=== PATIENT | female | born 1965 | race Caucasian/White ===

== ENCOUNTER → 2018-04-06 15:20 | Outpatient (CLI) | payer OTHER, SELFPAY ==
[2018-04-06 14:56] VITALS: BMI 33.4
--- NOTE | 2018-04-06 15:20 | FLU_PTH ---
PATIENT: MAREK KIDD LOC: JIN U#:[id number] AGE/SX: 59/F ROOM: RE04/06/[address]: Dr. Brian Robert MD : 1965 BED: DIS: SPEC #: [id number] RECD: 04/07/18 07:26 STATUS: RANDELL REJusten #: [id number] SHELTON: 04/06/18 15:[address]: Brian Robert DEPT: CYTOLOGY RECD BY: Suresh Willett ENTERED: 04/07/18 11:35 SP TYPE: Fluid OTHR DR: Dr. Mikhail Elaine MD Tissues: A - Thyroid gland, NOS B - Thyroid gland, NOS C - Thyroid isthmus Procedures: Special Stain Group II Surgery Specimen Level IV Cytospin Fluid Cytology Other HEADER OPERATION: Fine needle aspiration of left thyroid and isthmus PRE-OP DIAGNOSIS: Thyroid nodules TISSUE SUBMITTED: A - Left thyroid fluid for cytology, B - Left thyroid slides x4, C - Isthmus slides x6 DIAGNOSIS CYTOLOGY A. Fine needle aspiration, left thyroid nodule (cytospin and cell block): Rare follicular cells, blood and colloid-like material. Negative for malignant cells. B. Fine needle aspiration, left thyroid nodule (smears): Atypical follicular cells with H?rthle cell features, of undetermined clinical significance. C. Fine needle aspiration, isthmus (smears): Adequate for evaluation. Polymorphous lymphocytes. Rare follicular cells present. See comment. AM:eli 04/08/18 COMMENT C. The specimen primarily consists of polymorphous lymphocytes with rare follicular cells with H?rthle cell features.. The nodule in the isthmus is consistent with chronic thyroiditis. Due to predominance of lymphocytes, a lymph node at this site cannot be entirely excluded. Clinical correlation is necessary. Case has been reviewed in consultation with Dr. Gan who concurs with the above diagnosis. IDC:SJ CYTOLOGY STUDY Slides are reviewed. CYTOLOGY GROSS A - Received is 3 ml of red cloudy fluid labeled with the patient's name and and designated per the requisition as left thyroid. Submitted for cytology preparation including cell block. B - Received are four smears labeled with the patient's name and designated per the requisition as left thyroid. Submitted for staining. C - Received are six smears labeled with the patient's name and designated per the requisition as isthmus. Submitted for staining. 04/07/18 TC:? CPT: 18936, 06505, 05506 x2
== END ==
PROVIDERS: Family Provider Family Medicine; PCP Family Medicine; Referring Provider Surgery; Visit Provider Surgery
DX: E04.1 Nontoxic single thyroid nodule (principal)
CPT/HCPCS: 88108; 88161; 88305; 88313

== ENCOUNTER → 2018-04-21 09:24 | Outpatient (CLI) | payer OTHER, SELFPAY ==
[2018-04-16 10:06] VITALS: BMI 33.4
--- NOTE | 2018-04-21 09:38 | US_ITS ---
STUDY: Neck ULTRASOUND REASON FOR EXAM: Female, 53 years old. Fullness in the neck TECHNIQUE: Ultrasound evaluation of the neck was performed with real-time and static weems-scale imaging. COMPARISON: None. FINDINGS: There are 3 enlarged left cervical nodes measuring 2 x 1 x 0.6 cm in the left submandibular space, 2.2 x 0.9 x 0.4 cm anterior lateral to the thyroid and 1 x 0.9 x 0.5 cm inferior and lateral to the thyroid US/Head/Neck Soft Tissue IMPRESSION: Mildly enlarged left cervical nodes of uncertain etiology or clinical significance. Sonographic guided biopsy or CT/PET scan would be helpful for further evaluation if indicated Electronically Signed: Yoandy Dixon MD at 19:37 EST , Service support ,
== END ==
LOC: US 09:25
PROVIDERS: Family Provider Family Medicine; PCP Family Medicine; Referring Provider Surgery; Visit Provider Surgery
DX: R22.1 Localized swelling, mass and lump, neck (principal)
CPT/HCPCS: 76536

== ENCOUNTER → 2018-04-29 07:56 | Outpatient (CLI) | payer OTHER, SELFPAY ==
--- NOTE | 2018-04-28 16:00 | ASPS_PTH ---
PATIENT: MAREK KIDD LOC: JIN U#:[id number] AGE/SX: 59/F ROOM: RE04/29/[address]: Dr. Brian Robert MD : 1965 BED: DIS: SPEC #: [id number] RECD: 04/29/18 07:53 STATUS: RANDELL COTEJusten #: [id number] SHEL[place]: 04/28/18 16:[address]: Brian Robert DEPT: CYTOLOGY RECD BY: Suresh Willett ENTERED: 04/29/18 11:03 SP TYPE: ASPIRATION OTHR DR: Dr. Mikhail Elaine MD Tissues: Neck, NOS Procedures: Special Stain Group II Cytology Other HEADER OPERATION: FNA left cervical lymph node PRE-OP DIAGNOSIS: Enlarged lymph node, neck TISSUE SUBMITTED: Left neck lymph node slides x8 DIAGNOSIS CYTOLOGY Left neck lymph node, FNA (smears): Negative for malignant cells. See cytology study and comment. SJ:eli 04/30/18 COMMENT Correlation with clinical, radiologic findings and appropriate follow up are necessary. If there is high suspicion of lymphoma, excision of the lymph node is suggested including flow cytometry studies, if clinically indicated. Please make reference to previous specimen ([id number]), A - Fine needle aspiration, left thyroid nodule (cytospin and cell block) with diagnosis of rare follicular cells, blood and colloid-like material, B - Fine needle aspiration, left thyroid nodule (smears) with diagnosis of atypical follicular cells with H?rthle cell feature of undetermined clinical significance, and C - Fine needle aspiration, isthmus (smears) with diagnosis of polymorphous lymphocytes and rare follicular cells present. CYTOLOGY STUDY Slides are reviewed. The specimen consists of polymorphous population of lymphocytes, predominantly small lymphocytes. CYTOLOGY GROSS Received are eight smears labeled with the patient's name and designated per the requisition as left neck lymph node. Submitted for staining. 04/29/18 TC:5 CPT: 47132
[2018-04-28 16:12] VITALS: BMI 33.4
== END ==
PROVIDERS: Family Provider Family Medicine; PCP Family Medicine; Referring Provider Surgery; Visit Provider Surgery
DX: R59.0 Localized enlarged lymph nodes (principal)
CPT/HCPCS: 88161; 88313

== ENCOUNTER 2018-05-04 09:38 | Observation (INO) | payer OTHER, SELFPAY ==
[2018-04-16 10:06] VITALS: BMI 33.4
[2018-04-28 16:12] VITALS: BMI 33.4
--- NOTE | 2018-04-28 17:07 | EKG12_ITS ---
Test Reason : PRE OP Blood Pressure : / mmHG Vent. Rate : 071 BPM Atrial Rate : 071 BPM P-R Int : 144 ms QRS Dur : 084 ms QT Int : 408 ms P-R-T Axes : 057 -11 -19 degrees QTc Int : 443 ms Sinus rhythm with occasional Premature ventricular complexes Possible Left atrial enlargement Nonspecific T wave abnormality Abnormal ECG Confirmed by CASANDRA WALLS, LACHELLE ([id number]), editorial director YONY ROSALES ([id number]) on 04/30/2018 8:50:58 AM Referred By: Brian Robert Confirmed By:LACHELLE GUAJARDO MD
[2018-04-28 17:37] LABS: Hematocrit 34.6 % (37-47); Hemoglobin 10.4 g/dl (12.0-15.0); Mean Corp Hgb Conc 30.1 g/gl (32-36); Mean Corpuscular Volume 76.4 fL (81-99); Mean Platelet Vol. 9.9 fl (6.2-12.0); Platelet Count 331 K/mm3 (150-450); RBC Distribution Width CV 14.8 % (11.6-14.6); RBC Distribution Width SD 41.5 fl (35.1-43.9); Red Blood Count 4.53 M/mm3 (4.2-5.4); Scan Indicated on CBC? Y/N NO; White Blood Count 8.5 K/mm3 (4.4-11.0)
[2018-04-28 18:33] LABS: Anion Gap 7 (5-15); BUN 19 mg/dL (7-18); Calcium,Total 8.2 mg/dL (8.5-10.1); Chloride 108 mmol/L (98-107); Creatinine, Serum 0.68 mg/dL (0.55-1.02); EST Glomerular Filtration Rate 97 mL/min (>60); Est Glom Filt Rate - Afr Amer 118 mL/min (>60); Glucose 97 mg/dL (74-106); Phosphorus 3.3 mg/dL (2.5-4.9); Potassium 3.9 mmol/L (3.5-5.1); Sodium Level 139 mmol/L (136-145)
[2018-05-04] VITALS (9 sets, daily range): BP systolic 88–146; BP diastolic 52–85; PULSE 59–84; RESP 16; TEMP 36.1–36.9; O2SAT 97–100; BMI 30.8; BMI 29.9
--- NOTE | 2018-05-04 | IMM_PTH ---
PATIENT: MAREK KIDD LOC: MS2 U#:[id number] AGE/SX: 53/F ROOM: [facility] RE05/04/[address]: Dr. Brian Robert MD : 1965 BED: 1 DIS: 05/04/2018 SPEC #: [id number] RECD: 05/06/18 12:19 STATUS: RANDELL REQ #: [id number] SHE[place]: 05/04/18 00:[address]: Brian Robert DEPT: IMMUNOHISTOCHEMISTRY RECD BY: Pari Vasquez ENTERED: 05/06/18 12:21 SP TYPE: IMMUNO OTHR DR: Dr. Mikhail Elaine MD Tissues: D - Thyroid gland, NOS Procedures: HBME (initial) CD56 (add) CK19 (add) GAL-3 (add) PHYSICIAN & INSTITUTION [place] [id number] SPECIMEN INFORMATION: Tissue Source: D - Thyroid Clinical Info: Multiple thyroid nodules Specimen Number: [id number] CPT code: 51507, 81080 x3 METHODOLOGY: Deparaffinized sections of prefer/formalin-fixed tissue or PAP/DQ stained slides are incubated with monoclonal/polyclonal antibodies/oligonucleotide probes. Localization is made via biotin free immunoperoxidase method. Appropriate controls are performed and reacted as expected. Results on target cell population are indicated in the following table: RESULTS: ANTIBODY / CLONE RESULT Block D4 HBME1 (HBME-1) positive CK19 (A53-B/A2.26) positive GAL3 (9C4) positive CD56 (123C3.D5) negative These tests were developed and their performance characteristics determined by [facility]. They may not have been cleared or approved by the U.S. Food and Drug Administration. The FDA has determined that such clearance or approval is not necessary. INTERPRETATION: Abisai Bush, total thyroidectomy: Papillary thyroid microcarcinoma. SJ:eli 05/07/18
--- NOTE | 2018-05-04 | PARA_PTH ---
PATIENT: MAREK KIDD LOC: MS2 U#:[id number] AGE/SX: 53/F [place] [facility] [place]: Dr. Brian Robert MD : 1965 BED: 1 DIS: 05/04/2018 SPEC #: [id number] RECD: 05/04/18 07:57 STATUS: RANDELL NYASIA #: [id number] SHE[place]: 05/04/18 00:[address]: Brian Robert DEPT: SURGICAL PATHOLOGY RECD BY: Pari Vasquez ENTERED: 05/04/18 09:45 SP TYPE: PARATHY OTHR DR: Dr. Mikhail Elaine MD Tissues: A - Parathyroid B - Parathyroid C - Parathyroid D - Thyroid gland, NOS E - Parathyroid Procedures: Frozen Section (charge) Surgery Specimen Level IV Surgery Specimen Level V HEADER OPERATION: Thyroidectomy PRE-OP DIAGNOSIS: Multiple thyroid nodules TISSUE SUBMITTED: A - Possible left inferior parathyroid sent to lab for frozen at 0752, B - Possible superior right parathyroid sent to lab for frozen at 0916, C - Remainder of left inferior parathyroid (specimen A), D - Thyroid, suture richard anterior/superior aspect of left lobe, E - Remainder of right superior parathyroid (specimen B) FROZEN SECTION DIAGNOSIS A. Possible left inferior parathyroid, biopsy: Thyroid tissue. SJ:eli 05/04/18 B. Perithyroidal tissue, biopsy: Lymphoid tissue. AM:eli 05/04/18 MICROSCOPIC DIAGNOSIS A. Possible left inferior parathyroid tissue: Thyroid tissue. B. Possible superior right parathyroid tissue: Consistent with chronic lymphocytic thyroiditis. See comment. C. Remainder of left inferior parathyroid: Thyroid tissue. D. 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 Multinodular goiter with adenomatoid nodules and cystic changes. Three out of three lymph nodes negative for metastatic carcinoma. See cancer summary below. E. Remainder of right superior parathyroid tissue: Consistent with chronic lymphocytic thyroiditis. See comment. :eli 05/06/18 COMMENT B. The specimen predominantly consists of lymphoid component. E. The specimen predominantly consists of lymphoid component. Please make reference to previous specimens ([id number]), fine needle aspiration, left thyroid nodule (cytospin and cell block) with diagnosis of rare follicular cells, blood and colloid-like material and fine needle aspiration, left thyroid nodule (smears)with diagnosis of atypical follicular cells with H?rthle cell feature of undetermined significance and fine needle aspiration, isthmus (smears) with diagnosis of polymorphous lymphocytes and rare follicular cells present and ([id number]) left neck lymph node, FNA with diagnosis of negative for malignant cells. THYROID CANCER SUMMARY: Procedure - total thyroidectomy Received - in formalin Specimen integrity - intact Specimen size - right lobe 3.5 x 2 x 1 cm, left lobe 4.5 x 3 x 2.5 cm, isthmus 2.3 x 1 x 1 cm Specimen weight - 19.3 gm Tumor focality - unifocal Tumor laterality - right lobe Tumor size - 0.4 x 0.4 cm (measured microscopically) Histologic type - papillary carcinoma, microcarcinoma Architecture - mixed, classical (papillary) and follicular Cytomorphology - classical Margins - margins are uninvolved by invasive carcinoma. The tumor is 0.2 cm away from the closest posterior margin. Tumor capsule - none Tumor capsular invasion - not applicable Lymph-Vascular invasion - not applicable Perineural invasion - not identified Extrathyroidal extension - not identified Lymph nodes: Number of lymph nodes examined - 3 Number of lymph nodes involved - 0 Distant metastasis - not applicable Additional pathologic findings - chronic lymphocytic thyroiditis (Yessica's thyroiditis). - Multinodular goiter with adenomatoid nodule and cystic changes. Ancillary studies - Immunohistochemistry ([id number]) supports the diagnosis of papillary thyroid microcarcinoma. PATHOLOGIC STAGE: pT1a pN0 Mx The above summary is in compliance with [employer] [place] [employer] (CAP) Cancer Protocols Checklist and [place] [employer] Committee on Cancer (AJCC), Staging Manual, 8th Ed. Case has been reviewed in consultation with Dr. Bolanos who concurs with the above diagnosis. IDC:AM MICROSCOPIC DESCRIPTION Slides are reviewed. GROSS DESCRIPTION A - Received fresh for frozen section diagnosis labeled with the patient's name is a specimen designated possible left inferior parathyroid. The specimen consists of a piece of hu soft tissue measuring 0.3 x 0.2 x 0.1 cm. The entire specimen is submitted for frozen section diagnosis in one cassette. / SJ: 05/04/18 B - Received fresh for frozen section diagnosis labeled with the patient's name is a specimen designated possible superior right parathyroid. The specimen consists of a piece of hu soft tissue measuring 0.3 x 0.2 x 0.1 cm. The entire specimen is submitted for frozen section diagnosis in one cassette. / AM: 05/04/18 C - Received in fixative is one container labeled with the patient's name and designated remainder of left inferior parathyroid. The specimen consists of an irregular fragment of light hu soft tissue measuring 0.3 x 0.2 x 0.1 cm. The specimen is totally submitted in one cassette. / AM: 05/05/18 D - Received in fixative is one container labeled with the patient's name and designated thyroid. The specimen consists of a total thyroidectomy measuring 6.6 x 4.2 x 2.5 cm and weighing 19.3 gm. The right lobe measures 3.5 x 2 x 1 cm. The isthmus measures 2.3 x 1 x 1 cm. The left lobe measures 4.5 x 3 x 2.5 cm. The specimen is differentially inked as follows: right lobe anterior - blue, left lobe anterior - green, isthmus anterior - red. The entire posterior portion of the gland is inked in black ink. Serial sections of the isthmus reveal a firm, hu-white lesion measuring 1.5 x 1 x 0.8 cm. This nodule extends into the lower portion of the right lobe. A similar mass measuring 1.2 cm is noted in the superior portion of the right lobe. The left lobe is replaced by a cystic lesion that measures 3.2 cm in greatest dimension and in its most inferior portion appear to have calcific change. The specimen is totally submitted in 13 cassettes as follows: 1 - isthmus, 2 & 3 - right lobe inferior portion with lesion, 4 & 5 - right lobe superior half, 6-13 - entire left lobe with #13 submitted after decalcification. / AM:eli 05/05/18 E - Received in fixative is one container labeled with the patient's name and designated remainder of right superior parathyroid. The specimen consists of an irregular fragment of light hu soft tissue measuring 0.5 x 0.2 x 0.1 cm. The specimen is totally submitted in one cassette. / AM:eli 05/05/18 TC:0 CPT: 00312, 24695 x4, 73203 x2
--- NOTE | 2018-05-04 07:12 | PCM.DC.GS ---
Discharge Diet: Light diet - advance as tolerated - if you have questions about your diet instructions, please talk to you doctor. Discharge Activity: May Not Drive - for 3-5days or while taking narcotic pain medicine. May shower in (days): 1 Lifting Restrictions: 10 pounds Call your doctor if your incision/area has: Continuous Slow Oozing, Sudden Increased Bleeding, Increased Pain/ Swelling, Increased Redness, Foul Smelling Discharge Call your doctor if you observe: Fever of 101 or Higher Suture Line Care: Avoid Pulling/Pushing, Avoid Pinching/Bending Additional Dressing/Incision Instructions:: You may leave the incision open or you may cover it with a small Band-Aid or gauze dressing to protect it from clothing Allergies/Adverse Reactions: Allergies No Known Allergies Allergy (Verified 04/28/18 15:53) Medications to take at Discharge magnesium 250 mg tablet 250 mg PO DAILY 04/06/18 Orders to be completed after discharge: 12 Lead EKG [CVS] Time Frame: 04/28/18, Facility: [facility], Location: Cardiovascular Services Basic Metabolic Profile (BMP) Time Frame: 04/28/18, Location: Laboratory CBC-Complete Blood Cnt No Diff Time Frame: 04/28/18, Location: Laboratory Phosphorus Time Frame: 04/28/18, Location: Laboratory Primary Care Physician: Mikhail Elaine [Primary Care Provider] - Test Results: Test results from this visit will be discussed in further detail at your follow-up appointment, if applicable. Please Follow Up With: Brian Robert MD - [phone] When: Call to make an appointment to be seen in about 10 days.
--- NOTE | 2018-05-04 07:15 | DCINST_ITS ---
Discharge Diet: Light diet - advance as tolerated - if you have questions about your diet instructions, please talk to you doctor. Discharge Activity: May Not Drive - for 3-5days or while taking narcotic pain medicine. May shower in (days): 1 Lifting Restrictions: 10 pounds Call your doctor if your incision/area has: Continuous Slow Oozing, Sudden Increased Bleeding, Increased Pain/ Swelling, Increased Redness, Foul Smelling Discharge Call your doctor if you observe: Fever of 101 or Higher Suture Line Care: Avoid Pulling/Pushing, Avoid Pinching/Bending Additional Dressing/Incision Instructions:: You may leave the incision open or you may cover it with a small Band-Aid or gauze dressing to protect it from clothing Allergies/Adverse Reactions: Allergies No Known Allergies Allergy (Verified 04/28/18 15:53) Medications to take at Discharge magnesium 250 mg tablet 250 mg PO DAILY 04/06/18 Orders to be completed after discharge: 12 Lead EKG [CVS] Time Frame: 04/28/18, Facility: [facility], Location: Cardiovascular Services Basic Metabolic Profile (BMP) Time Frame: 04/28/18, Location: Laboratory CBC-Complete Blood Cnt No Diff Time Frame: 04/28/18, Location: Laboratory Phosphorus Time Frame: 04/28/18, Location: Laboratory Primary Care Physician: Mikhail Elaine [Primary Care Provider] - Test Results: Test results from this visit will be discussed in further detail at your follow- up appointment, if applicable. Please Follow Up With: Brian Robert MD - [phone] When: Call to make an appointment to be seen in about 10 days.
[2018-05-04] MEDS: Bupivacaine Mpf 0.5% 30 ML VIAL (09:30)
--- NOTE | 2018-05-04 09:41 | PCM.OPRPT ---
Report of Operation Date of Procedure: 05/04/18 Pre-Operative Diagnosis: Atypical follicular lesion thyroid Post-Operative Diagnosis: Pathology pending Surgery/Procedure Performed:: Total thyroidectomy Description of Surgical Findings:: Timeout and informed consent was obtained. 3-year-old female taken out from placement table underwent general trach intubation anesthesia the neck was gently extended and prepped with ChloraPrep. She had adenopathy particularly of the left neck preoperatively she underwent ultrasound-guided fine-needle aspiration of this and this was felt to be consistent with benign lymphoid tissue. She has an atypical follicular lesion of the thyroid. Transverse suprasternal incision was created sharp dissection carried down through the subtenons tissue platysmal flaps were raised sternal strap muscles were incised vertically left strap muscle was partially incised to the size of the left dominant nodule tedious and gradually the middle thyroidal vein was secured with harmonic scalpel the inferior pole was carefully freed there was an adherent nodule the inferior pole of thyroid that had an appearance of parathyroid. I dissected that free submitted a small segment that small fragment of ended up on frozen section be thyroid tissue and so the remnant of that tissue was submitted for final analysis as well. The inferior pole was freed taking care to preserve parathyroid tissue then I cassi my attention to the superior pole this was rather superior and so tedious blunt dissection and harmonic dissection was required. The adhesions were rather adherent. I then rotated the gland anteriorly and at the ligament of Sanz there was extensive amount of vascularization and adherence so tediously blunt dissection and harmonic scalpel dissection hemoclips were used as that gland was rotated anteriorly identifying the course of the recurrent laryngeal nerve and protecting it. The gland was then freed from the anterior surface of the trachea with a harmonic scalpel. A similar technique was used on the right initially freeing the inferior pole superior pole and mid thyroid gland rotating it anteriorly. Very small fragment of thyroid tissue remained remnant of the superior pole on the right due to the very high nature of that process. The gland could be rotated anteriorly identify the course of the recurrent laryngeal nerve as I carefully dissected at the ligament of Sanz. The gland could then be nicely dissected off the anterior surface of the trachea. The neck was inspected it was noted to be nicely hemostatic fibrillar was placed in both sides of the neck structures appear to be intact there was no palpable residual enlarged disease. It is of note that upon inspecting the thyroid there appeared to be a small nodule superior on the right so I removed that place that on a moistened gauze and satisfaction of that for frozen section that returned lymph node material. So then I submitted the rest of that nodule. The gland was inspected there was no further adherence to it I placed a suture in the anterior superior aspect of the left lobe. It was quite firm hard calcified in that region. The neck was closed in layers approximating the strap muscles interrupted 3-0 Vicryl the platysma was the same the skin edges proximal interrupted 5-0 Vicryl subdermal stitches Dermabond was applied the amy-incision was anesthetized with 10 cc of 0.5% Marcaine Sponge and instrument and needle counts reported the surgeon be correct Specimen included the frozen section analysis of the nodule in the inferior aspect of the left lobe of thyroid which was thyroid tissue it included a frozen section of a nodule in the right superior aspect of the thyroid which was lymphoid and included the total thyroid. Drains none. Blood loss minimal. Brian Robert M.D., F.A.C.S. Type of Anesthesia:: General Anesthesiologist: Marcela Butler
[2018-05-04] MEDS: Calcium Carbonate 500 MG Tablet 1000 MG PO ×2 (12:15→16:20)
[2018-05-04] MEDS: Lactated Ringers 1,000 ML 30 ML IV (12:15)
[2018-05-04] MEDS: HYDROcodone Bitartrate/Apap 5/325 Tablet PO (15:12)
[2018-05-04] MEDS: Acetaminophen 325 MG Tablet 650 MG PO (15:12)
[2018-05-04 15:46] LABS: Calcium,Total 8.8 mg/dL (8.5-10.1)
--- NOTE | 2018-05-04 16:02 | CHAPLAIN ---
patient is sleeping; offered support for family; many family members present in room
--- NOTE | 2018-05-04 16:45 | NURSING ---
PT AMBULATED IN HALLS WITH SPOUSE AND FAMILY. TOLERATED WELL, DENIES PAIN AT THIS TIME.
--- NOTE | 2018-05-04 18:08 | PCM.PN.SRG ---
- Physical Exam General: Alert, Oriented x3, Cooperative, No apparent distress HEENT: - - supple, NT Neurological: - - voice very clear and strong Vital Signs Temp Pulse Resp BP Pulse Ox 97.9 F 84 16 146/67 H 100 05/04/18 15:53 05/04/18 15:53 05/04/18 15:53 05/04/18 15:53 05/04/18 15:53 Oxygen Flow Rate (L/min) 1 Oxygen Delivery Method Room Air Weight: 169 lb 5.04 oz Body Mass Index (BMI) 29.9 Intake and Output for Last 24 Hours 05/02/18 05/03/18 05/04/18 23:59 23:59 23:59 Intake Total 1800 / 1800 Output Total 1000 / 1000 Balance 800 / 800 Laboratory Tests Past 24 Hrs 05/04/18 15:17 Calcium 8.8 Medical Necessity - Tobacco Use Smoking Status: Never smoker Assessment/Plan All Active Problems (Last Reviewed 04/28/18 @ 15:54 by Ximena Clemente) Cervical adenopathy (Acute) Multiple thyroid nodules (Acute) Ca 8.8 Pt very stable and ready for discharge
== END 2018-05-04 18:30 | disposition home or self-care (01) ==
LOC: MS2 10:31
PROVIDERS: Admitting Provider Surgery; Family Provider Family Medicine; PCP Family Medicine; Referring Provider Surgery; Visit Provider Surgery
PROC: (CPT 60240; principal; 2018-05-04 07:00)
DX: C73 Malignant neoplasm of thyroid gland (principal); E06.3 Autoimmune thyroiditis; I49.3 Ventricular premature depolarization
CPT/HCPCS: 60240; 36415; 80048; 82310; 84100; 85027; 88305; 88307; 88331; 88341; 88342; 93005; 99218; J7120; G0378; G0379; J2405

== ENCOUNTER 2021-01-26 17:58 | Emergency (ER) | payer OTHER, SELFPAY ==
[2021-01-26 17:58] VITALS: BP 148/90; PULSE 96; RESP 18; TEMP 36.2; O2SAT 97; BMI 31.8
[2021-01-26 18:45] LABS: Bedside Glucose 107 mg/dL (70-110)
[2021-01-26 19:40] LABS: Absolute Lymphocyte Count 2.16 X10^3/uL (0.83-4.51); Absolute Neutrophil Count 3.2 X10^3/uL (2.0-7.7); Basophil# 0.03 X10^3/uL; Basophil% 0.5 % (0-1); Eosinophil# 0.14 X10^3/uL; Eosinophils% 2.4 % (0-5); Hematocrit 38.7 % (37-47); Hemoglobin 12.5 g/dL (12.0-15.0); Lymphocyte # 2.16 X10^3/ul (0.83-4.51); Lymphocyte % 36.6 % (19-41); Mean Corp Hgb Conc 32.3 g/dL (32-36); Mean Corpuscular Hgb 26.7 pg (27.0-32.0); Mean Corpuscular Volume 82.7 fL (81-99); Mean Platelet Vol. 9.7 fl (6.2-12.0); Monocyte# 0.37 X10^3/uL; Monocyte% 6.3 % (0-10); NRBC Flagged by Analyzer 0 % (0-5); Neutrophil # 3.16 X10^3/uL (2.7-7.7); Neutrophil % 53.5 % (47-70); Platelet Count 373 K/mm3 (150-450); RBC Distribution Width CV 12.7 % (11.6-14.6); RBC Distribution Width SD 38.5 fl (35.1-43.9); Red Blood Count 4.68 M/mm3 (4.2-5.4); White Blood Count 5.9 K/mm3 (4.4-11.0)
[2021-01-26 19:46] LABS: Bacteria 0 SEEN /hpf (None Seen); Mucous, Urine 0 SEEN /hpf (<or=2+); Red Blood Cells-Urine 0 SEEN /hpf (0-5); Squamous Epithelial Cells - UA 0 SEEN /hpf (5-10); White Blood Cells 0 SEEN /hpf (0-5)
[2021-01-26 19:49] LABS: Color, Urine Yellow (Yellow); Glucose, Dipstick Normal (Normal); Ketone-Dipstick 5 mg/dl (Negative); Leukocyte Esterase-Dipstick Negative /ul (Negative); Nitrite-Dipstick Negative (Negative); Occult Blood-Urine Negative /ul (Negative); Protein-Dipstick Negative (Negative); Urine Bilirubin Dipstick Negative (Negative); Urine Clarity Sl. Cloudy (Clear); Urine Urobilinogen Normal (Normal)
[2021-01-26 19:57] LABS: ALB/GLOB Ratio 0.8 RATIO (0.9-2.4); AST(SGOT) 48 U/L (15-37); Alanine Aminotransfer ALT/SGPT 75 U/L (13-56); Albumin, Serum 3.2 g/dL (3.2-5.0); Alkaline Phosphatase 91 U/L (45-117); Anion Gap 8 (5-15); BUN 8 mg/dL (7-18); BUN/Creat Ratio 15.9 RATIO (10-20); Calcium,Total 9.4 mg/dL (8.5-10.1); Chloride 108 mmol/L (98-107); EST Glomerular Filtration Rate 136 mL/min (>60); Est Glom Filt Rate - Afr Amer 164 mL/min (>60); Estimated Creatinine Clearance 107.64 ml/min; Globulin 4.1 g/dL (2.2-4.2); Glucose 107 mg/dL (74-106); Potassium 3.6 mmol/L (3.5-5.1); Protein, Total 7.3 g/dL (6.4-8.2); Sodium Level 142 mmol/L (136-145)
--- NOTE | 2021-01-26 20:56 | EDS_ITS ---
HPI History of Present Illness Chief Complaint: Hyperglycemia Informant: patient Onset/Context/Timing Onset: Today Timing: Waxes and wanes Quality: Lightheaded, woozy. Location: Generalized Worsened by: Nothing Relieved by: Nothing Narrative Narrative: Patient presents with elevated blood sugars today. Patient states she was feeling lightheaded and woozy. Patient checked her blood sugar at home and it was 226. Patient states she recently got over COVID-19. Patient states she is currently on antibiotics for pneumonia. Patient states she is taking Augmentin and doxycycline for that. Patient states she has never had problems with her blood sugars in the past. Patient states her symptoms seem to wax and wane but have been constant throughout the day. Patient checked her blood sugars at other times and it was 180 and then other times it was normal. Patient does admit to some polydipsia and possibly polyuria. PFSH PFSH Medical History Back pain Breast lump Cervical adenopathy Multiple thyroid nodules Papillary thyroid carcinoma Postoperative primary hypothyroidism PVC (premature ventricular contraction) Thyroid cancer Thyroid nodule Home Medications levothyroxine 125 mcg tablet 125 mcg PO DAILY #1 tab 10/30/20 [Rx Last Taken Unknown] amoxicillin-pot clavulanate [Augmentin] 1 tab PO BID 01/26/21 [History Last Taken Unknown] doxycycline hyclate 100 mg PO BID 01/26/21 [History Last Taken Unknown] promethazine-codeine 10 ml PO Q4H PRN PRN 01/26/21 [History Last Taken Unknown] Allergy/AdvReac Type Severity Reaction Status Date / Time No Known Allergies Allergy Verified 10/30/20 08:26 Family History Grandmother Diabetes Mother Diabetes Hypertension CVA (cerebral vascular accident) Thyroid disorder Father Heart disease Grandfather Heart disease Daughter Asthma Surgical History H/O total thyroidectomy (~05/04/18) history of back fusion History of cholecystectomy History of colonoscopy History of nasal septoplasty Social History Smoking Status: Never smoker ROS ROS ED Constitutional Constitutional ED: Denies chills or fever(s) Eyes Eyes: Denies blurry vision or change in vision ENT ENT ED: Denies rhinorrhea or sore throat Cardiovascular Cardiovascular: Reports chest pain; Denies palpitations Respiratory/Chest Respiratory/Chest: Denies cough or dyspnea Gastrointestinal Gastrointestinal: Reports nausea; Denies vomiting Genitourinary Genitourinary ED: Denies dysuria or hematuria Musculoskeletal Musculoskeletal: Denies back pain or neck pain Integumentary Denies abscess or rash Neurologic Neurologic: Denies headache(s) or weakness Endocrine Endocrinology: Reports polydipsia and polyuria Allergic/Immunologic Allergic/Immunologic ED: Denies mouth swelling or urticaria EXAM Physical Exam Const Vital Signs: 01/26/21 17:58 01/26/21 18:37 Temperature 97.2 F L Temperature Source Temporal Pulse Rate 96 Respiratory Rate 18 Respiratory Effort Normal Non-Labored Respiratory Pattern Normal Blood Pressure 148/90 H Blood Pressure Mean 109 Pulse Ox 97 Oxygen Delivery Method Room Air Positive well nourished and well developed General Appearance ED: well developed HEENT Reports moist mucous membranes Neck supple and no JVD Resp normal respiratory effort and clear to auscultation bilaterally Cardio regular rate, regular rhythm and no murmurs GI normal to inspection, nondistended, normoactive bowel sounds and non-tender Palpation: soft Extremity normal to inspection General Extremety ED: Negative for edema or tenderness General Extremity: Negative for edema Neuro oriented x3, CN's II-XII intact bilaterally and no sensory deficits noted Sensorium / Orientation: alert Motor Exam: strength 5/5 throughout Psych mental status grossly normal Skin no rashes or lesions noted MDM MDM MDM Narrative Medical decision making narrative: CBC was within normal limits. Comprehensive metabolic profile was essentially within normal limits. Glucose was normal at 107. Anion gap was normal. There was small serum acetone. Patient is feeling better on reevaluation. Patient was advised of her findings. Patient was instructed to keep a log of her blood sugars as well as the times she eats and the foods that she eats. Patient was instructed to follow-up with her primary care physician in 3 to 5 days. Patient understood and was agreeable with the plan. All questions were answered. Lab Data Attestation: I reviewed the patient's lab results. Labs: Laboratory Results - last 24 hr 01/26/21 01/26/21 01/26/21 18:15 18:35 19:30 WBC 5.9 RBC 4.68 Hgb 12.5 Hct 38.7 MCV 82.7 MCH 26.7 L MCHC 32.3 RDW Std Deviation 38.5 RDW Coeff of Rey 12.7 Plt Count 373 MPV 9.7 Immature Gran % (Auto) 0.700 Neut % (Auto) 53.5 Lymph % (Auto) 36.6 [place] % (Auto) 6.3 Eos % (Auto) 2.4 Baso % (Auto) 0.5 Absolute Neuts (auto) 3.2 Absolute Lymphs (auto) 2.16 Nucleated RBC % 0 Sodium Potassium Chloride Carbon Dioxide Anion Gap BUN Creatinine Estim Creat Clear Calc Est GFR (MDRD) Af Amer Est GFR (MDRD) Non-Af BUN/Creatinine Ratio Glucose Calcium Total Bilirubin AST ALT Alkaline Phosphatase Total Protein Albumin Globulin Albumin/Globulin Ratio Urine Color Yellow Urine Clarity Sl. Cloudy Urine pH 7.0 Ur Specific [place] 1.010 Urine Protein Negative Urine Glucose (UA) Normal Urine Ketones 5 H Urine Occult Blood Negative Urine Nitrite Negative Urine Bilirubin Negative Urine Urobilinogen Normal Ur Leukocyte Esterase Negative Urine RBC 0 SEEN Urine WBC 0 SEEN Ur Squamous Epith Cells 0 SEEN Urine Bacteria 0 SEEN Urine Mucus 0 SEEN Acetone Level POC Glucose 107 01/26/21 01/26/21 19:30 19:30 WBC RBC Hgb Hct MCV MCH MCHC RDW Std Deviation RDW Coeff of Rey Plt Count MPV Immature Gran % (Auto) Neut % (Auto) Lymph % (Auto) [place] % (Auto) Eos % (Auto) Baso % (Auto) Absolute Neuts (auto) Absolute Lymphs (auto) Nucleated RBC % Sodium 142 Potassium 3.6 Chloride 108 H Carbon Dioxide 26.0 Anion Gap 8 BUN 8 Creatinine 0.50 L Estim Creat Clear Calc 107.64 Est GFR (MDRD) Af Amer 164 Est GFR (MDRD) Non-Af 136 BUN/Creatinine Ratio 15.9 Glucose 107 H Calcium 9.4 Total Bilirubin 0.40 AST 48 H ALT 75 H Alkaline Phosphatase 91 Total Protein 7.3 Albumin 3.2 Globulin 4.1 Albumin/Globulin Ratio 0.8 L Urine Color Urine Clarity Urine pH Ur Specific [place] Urine Protein Urine Glucose (UA) Urine Ketones Urine Occult Blood Urine Nitrite Urine Bilirubin Urine Urobilinogen Ur Leukocyte Esterase Urine RBC Urine WBC Ur Squamous Epith Cells Urine Bacteria Urine Mucus Acetone Level SMALL H POC Glucose Discharge Plan Triage Chief Complaint: Hyperglycemia ED Provider: Bryce Hall Dx/Rx/DC Orders Clinical Impression: Lightheadedness Instructions: ED Dizziness, Uncertain Cause Prescriptions: No Action levothyroxine 125 mcg tablet 125 mcg PO DAILY Qty: 1 RF: 0 doxycycline hyclate 100 mg Capsule 100 mg PO BID RF: 0 promethazine-codeine 6.25-10 mg/5 mL syrup 10 ml PO Q4H PRN PRN (Reason: Cough) RF: 0 amoxicillin-pot clavulanate [Augmentin] 875-125 mg tablet 1 tab PO BID RF: 0 Primary Care Provider: Mikhail Elaine Referrals: Mikhail Elaine MD [Primary Care Provider] - 3-5 Days Disposition Disposition: Home, Self Care
== END 2021-01-26 21:13 | disposition home or self-care (01) ==
PROVIDERS: Emergency Provider Emergency Medicine; PCP Family Medicine
DX: R42 Dizziness and giddiness (principal); R73.9 Hyperglycemia, unspecified; E04.2 Nontoxic multinodular goiter; Z86.16 Personal history of COVID-19; Z79.899 Other long term (current) drug therapy
CPT/HCPCS: 80053; 81001; 82009; 82962; 85025; 99284; A4216

== ENCOUNTER 2022-06-11 00:55 | Emergency (ER) | payer OTHER, SELFPAY ==
[2022-06-11 00:56] VITALS: BP 166/83; PULSE 93; RESP 18; TEMP 36.8; O2SAT 99; BMI 34.7
[2022-06-11 00:58] VITALS: BP 166/83; PULSE 93; RESP 16; TEMP 36.8; O2SAT 100
--- NOTE | 2022-06-11 01:32 | EX.ED.DYSGE1 ---
HPI History of Present Illness Chief Complaint: Cellulitis Narrative Narrative: Patient is a 57-year-old female with past medical history of hypertension hyperlipidemia and thyroid cancer. 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 She states she did not think much of this but as time passed she noticed some redness and swelling at the site. She states she contacted her family doctor who then started her on Bactrim and Keflex. She states she is only been on that for approximately 2 days but this night/morning woke up with subjective fevers and chills. She states she took her temperature at home and it was 99.9. She reports that she also feels that the redness and swelling has increased in size up along her forehead despite taking antibiotic. Therefore with concern for worsening infection she comes in for evaluation. [facility] Medical History Back pain Breast lump Cervical adenopathy Multiple thyroid nodules Papillary thyroid carcinoma Postoperative primary hypothyroidism PVC (premature ventricular contraction) Thyroid cancer Thyroid nodule Home Medications promethazine 6.25 mg-codeine 10 mg/5 mL syrup 10 ml PO Q4H PRN PRN Cough 01/26/21 [History Last Taken Unknown] cephalexin 500 mg capsule 500 mg PO BID 06/11/22 [History Last Taken Unknown] clindamycin HCl 300 mg capsule (Cleocin HCl) 300 mg PO 4X/DAY 10 days #40 CAPSULES 06/11/22 [Rx Last Taken Unknown] levothyroxine 125 mcg tablet 150 mcg PO DAILY 06/11/22 [History Last Taken Unknown] sulfamethoxazole 800 mg-trimethoprim 160 mg tablet 1 tab PO BID 06/11/22 [History Last Taken Unknown] Allergy/AdvReac Type Severity Reaction Status Date / Time No Known Allergies Allergy Verified 06/11/22 00:58 Family History Grandmother Diabetes Mother Diabetes Hypertension CVA (cerebral vascular accident) Thyroid disorder Father Heart disease Grandfather Heart disease Daughter Asthma Surgical History H/O total thyroidectomy (~05/04/18) history of back fusion History of cholecystectomy History of colonoscopy History of nasal septoplasty Social History Smoking Status: Never smoker ROS ROS ED Constitutional Constitutional ED: Reports chills, fever(s) and subjective ENT ENT ED: Denies sore throat Cardiovascular Cardiovascular: Denies chest pain Respiratory/Chest Respiratory/Chest: Denies cough or dyspnea Gastrointestinal Gastrointestinal: Denies abdominal pain, diarrhea, nausea or vomiting Genitourinary Genitourinary ED: Denies dysuria Musculoskeletal Musculoskeletal: Denies myalgias Integumentary Reports Abrasions and other Details: Positive forehead cellulitis Neurologic Neurologic: Denies headache(s) Hematologic/Lymphatic Hematologic/Lymphatic: Denies easy bleeding or easy bruising EXAM Physical Exam Const Vital Signs: 06/11/22 00:56 06/11/22 00:58 Temperature 98.3 F 98.3 F Temperature Source Oral Oral Pulse Rate 93 93 Respiratory Rate 18 16 Blood Pressure 166/83 H 166/83 H Blood Pressure Mean 110 110 Pulse Ox 99 100 Oxygen Delivery Method Room Air Room Air Positive well nourished and well developed General Appearance ED: well developed HEENT HEENT Narrative: There is a superficial abrasion to the midportion of the forehead near the scalp/hairline consistent with recent abrasion. Extending from this is erythema and warmth and a triangle pattern that terminates in between the eyebrow. There is no obvious discharge or lymphangitic streaking. There is mild soft tissue swelling but no overt fluctuance or induration to suggest abscess formation. Eyes PERRL and EOMs intact bilaterally Neck supple Neck Narrative: No nuchal rigidity or meningeal signs Positive anterior cervical of adenopathy noted Resp normal respiratory effort and clear to auscultation bilaterally Cardio regular rate and regular rhythm Extremity normal to inspection Neuro oriented x3 and CN's II-XII intact bilaterally Sensorium / Orientation: alert Psych mental status grossly normal Skin Skin Narrative: Soft tissue changes of the forehead as documented above MDM MDM MDM Narrative Medical decision making narrative: Patient presented to the ER hypertensive but has a past medical history of this and otherwise is afebrile. She reported temperature of 99.9 at home but this is not a true fever. She is currently on Bactrim and Keflex but has only been on this for approximately 48 hours and therefore it is difficult to truly say she has failed outpatient treatment. Differential diagnosis includes cellulitis abscess septicemia and failure of outpatient therapy. With concern for systemic infection from the recent cellulitis basic blood work was obtained. Labs showed normal white count and lactic acid value there is no left shift and there is no elevation to her CRP. With these infectious/inflammatory markers being normal as well as the fact that she is truly afebrile and not hypotensive my concern for systemic infection is low. There is also no obvious abscess formation present on exam and therefore there is no need to perform an incision and drainage or needle aspiration. Patient was given 15 mg a kilogram of vancomycin secondary to the infectious process. As she has had slightly worsening of symptoms despite taking Bactrim and Keflex there is a chance that the infection may be resistant to it and therefore the antibiotic will be changed to clindamycin. However at this time as work-up is not indicating there is systemic infection and patient has not been on antibiotics long enough to qualify for failed outpatient therapy she will be discharged home and agrees to return to the ER if symptoms fail to improve or worsen History & Record Review Discussion w/independent historian: Patient and Family Lab Data Attestation: I reviewed the patient's lab results. Labs: Laboratory Results - last 24 hr 06/11/22 06/11/22 06/11/22 01:22 01:22 01:22 WBC 6.9 RBC 4.98 Hgb 13.7 Hct 42.7 MCV 85.7 MCH 27.5 MCHC 32.1 RDW Std Deviation 40.5 RDW Coeff of Rey 13.0 Plt Count 257 MPV 10.0 Immature Gran % (Auto) 0.300 Neut % (Auto) 53.3 Lymph % (Auto) 33.3 [place] % (Auto) 9.1 Eos % (Auto) 3.3 Baso % (Auto) 0.7 Absolute Neuts (auto) 3.7 Absolute Lymphs (auto) 2.30 Nucleated RBC % 0 Sodium 137 Potassium 4.1 Chloride 108 H Carbon Dioxide 24.0 Anion Gap 5 BUN 15 Creatinine 0.84 Estim Creat Clear Calc 62.60 Est GFR (MDRD) Af Amer 91 Est GFR (MDRD) Non-Af 75 BUN/Creatinine Ratio 17.9 Glucose 121 H Lactic Acid 1.9 Calcium 8.8 C-React Prot Ext Range < 2.90 Discharge Plan Triage Chief Complaint: Cellulitis ED Provider: Jose De Dx/Rx/DC Orders Clinical Impression: Cellulitis of forehead, Hypertension, Hyperlipidemia Instructions: ED Cellulitis Prescriptions: New clindamycin HCl [Cleocin HCl] 300 mg capsule 300 mg PO 4X/DAY 10 Days Qty: 40 0RF No Action promethazine-codeine 6.25-10 mg/5 mL syrup 10 ml PO Q4H PRN PRN (Reason: Cough) sulfamethoxazole-trimethoprim 800-160 mg tablet 1 tab PO BID cephalexin 500 mg capsule 500 mg PO BID levothyroxine 125 mcg tablet 150 mcg PO DAILY Primary Care Provider: Mikhail Elaine Referrals: Mikhail Elaine MD [Primary Care Provider] - Activity Restrictions/Additional Instructions: Please stop the Bactrim and Keflex which you were given by your family doctor secondary to the infection continuing to spread despite being on these medications. control and recovery special tactics to the clindamycin which was prescribed this evening for improved infection control. He will typically take 3 days for the infection to improve. If you develop a fever over 100.4 or your redness continues to spread and worsen despite taking the new antibiotic please return to the ER for repeat evaluation and possible admission for failure of outpatient treatment. Disposition Disposition: Home, Self Care
[2022-06-11 01:33] LABS: Absolute Neutrophil Count 3.7 X10^3/uL (2.0-7.7); Basophil# 0.05 X10^3/uL; Basophil% 0.7 % (0-1); Eosinophil# 0.23 X10^3/uL; Eosinophils% 3.3 % (0-5); Hematocrit 42.7 % (37-47); Hemoglobin 13.7 g/dL (12.0-15.0); Lymphocyte % 33.3 % (19-41); Mean Corp Hgb Conc 32.1 g/dL (32-36); Mean Corpuscular Hgb 27.5 pg (27.0-32.0); Mean Corpuscular Volume 85.7 fL (81-99); Monocyte# 0.63 X10^3/uL; Monocyte% 9.1 % (0-10); NRBC Flagged by Analyzer 0 % (0-5); Neutrophil # 3.67 X10^3/uL (2.7-7.7); Neutrophil % 53.3 % (47-70); Platelet Count 257 K/mm3 (150-450); RBC Distribution Width SD 40.5 fl (35.1-43.9); Red Blood Count 4.98 M/mm3 (4.2-5.4); White Blood Count 6.9 K/mm3 (4.4-11.0)
[2022-06-11] MEDS: Ketorolac 30 MG/ML Syringe IV (02:01)
[2022-06-11 02:02] LABS: Anion Gap 5 (5-15); BUN 15 mg/dL (7-18); BUN/Creat Ratio 17.9 RATIO (10-20); CRP < 2.90 mg/L (0.0-3.0); Calcium,Total 8.8 mg/dL (8.5-10.1); Chloride 108 mmol/L (98-107); Creatinine, Serum 0.84 mg/dL (0.55-1.02); EST Glomerular Filtration Rate 75 mL/min (>60); Est Glom Filt Rate - Afr Amer 91 mL/min (>60); Glucose 121 mg/dL (74-106); Lactic Acid 1.9 mmol/L (0.4-1.9); Potassium 4.1 mmol/L (3.5-5.1); Sodium Level 137 mmol/L (136-145)
[2022-06-11 03:58] VITALS: BP 122/77; PULSE 86; RESP 15; TEMP 37.1; O2SAT 98
[2022-06-11 04:12] VITALS: BP 122/77; PULSE 86; RESP 15; TEMP 37.1; O2SAT 98
[2022-06-11 04:14] VITALS: BP 122/77; PULSE 86; RESP 15; TEMP 37.1; O2SAT 98
== END 2022-06-11 04:31 | disposition home or self-care (01) ==
PROVIDERS: Emergency Provider Emergency Medicine; PCP Family Medicine; Visit Provider Emergency Medicine
DX: L03.811 Cellulitis of head [any part, except face] (principal)
CPT/HCPCS: 80048; 83605; 85025; 86140; 87040; 96365; 96366; 96375; 99283; J7050; A4216

== ENCOUNTER → 2022-09-22 | Outpatient (CLI) | payer OTHER, SELFPAY ==
[2022-09-26 15:08] LABS: HPV APTIMA, High Risk Negative (Negative)
== END | disposition home or self-care (01) ==
LOC: LABSPEC 13:29
PROVIDERS: PCP Family Medicine; Referring Provider Nurse Practitioner Women's Health; Visit Provider Nurse Practitioner Women's Health
DX: Z78.0 Asymptomatic menopausal state (principal)
CPT/HCPCS: 87624; 88175; G0145

== ENCOUNTER → 2023-06-22 | Outpatient (CLI) | payer OTHER, SELFPAY ==
--- NOTE | 2023-06-22 09:23 | US_ITS ---
STUDY: ULTRASOUND BREAST - LEFT REASON FOR EXAM: Female, 58 years old. Palpable lump/pain in the upper outer quadrant of the left breast. TECHNIQUE: Axial and longitudinal images of the LEFT breast were performed with a high resolution ultrasound transducer. # OF IMAGES: 41 COMPARISON: Comparison is made with prior mammogram done earlier in the day. FINDINGS: LEFT Breast: The upper outer quadrant of the left breast was examined with ultrasound. There is a 6 mm x 5 mm x 6 mm hypoechoic nodule at the 3:00 position in the breast at 8 cm from the nipple. Peripheral blood flow is seen. Biopsy recommended. Dilated retroareolar ducts. US/Breast Limited Unilateral IMPRESSION: 6 mm x 5 mm x 6 mm hypoechoic nodule at the 2:00 position of the breast at 8 cm from nipple. Peripheral blood flow is seen. Biopsy recommended. ASSESSMENT CATEGORY: BIRADS Category 4: Suspicious - Biopsy Should Be Considered. A letter regarding these results will be sent to the patient by the facility within 30 days. Electronically Signed: Chris Middleton MD at 8:56 EDT ,
--- NOTE | 2023-06-22 09:23 | BI_ITS ---
MAMMOGRAPHY - BILATERAL DIAGNOSTIC REASON FOR EXAM: Female, 58 years old. Palpable lump in the upper outer aspect of the left breast. PERTINENT HISTORY: Aunts with breast cancer. TECHNIQUE: Digital bilateral breast laurita (3D mammographic acquisition) in the CC and MLO projections. 2-D mediolateral oblique (MLO) and craniocaudad (CC) views of both breasts were obtained. CAD: Full Field Digital Mammography with Computer Added Detection was performed. COMPARISON: Comparison is made with prior outside examination dated April 23, 2018. FINDINGS: Breast Composition: The breasts are heterogeneously dense, which may obscure small masses. There are no dominant masses or suspicious calcifications. Stable small benign-appearing bilateral axillary lymph nodes. No other significant abnormalities are identified. There has been no significant change since the prior study. BI/DIAG MAMM W/CAD, BILAT IMPRESSION: Stable bilateral diagnostic mammogram. One year follow-up recommended. (A) ASSESSMENT CATEGORY: BIRADS Category 2: Benign. A letter regarding these results will be sent to the patient by the facility within 30 days. Approximately 10% of breast cancers are not detected by mammography. A normal mammogram should not delay biopsy of a clinically suspicious abnormality. Electronically Signed: Chris Middleton MD at 10:36 EDT ,
== END | disposition home or self-care (01) ==
LOC: OPBI 09:22
PROVIDERS: Referring Provider Obstetrics & Gynecology; Visit Provider Obstetrics & Gynecology
DX: N64.4 Mastodynia (principal); N63.20 Unspecified lump in the left breast, unspecified quadrant
CPT/HCPCS: 76642; 77062; 77066; G0279

== ENCOUNTER → 2023-06-30 | Outpatient (CLI) | payer OTHER, SELFPAY ==
--- NOTE | 2023-06-30 | BRBX_PTH ---
PATIENT: MAREK KIDD LOC: OPUS U#:[id number] AGE/SX: 58/F ROOM: RE06/30/[address]: Dr. Nichelle Chicas MD : 1965 BED: DIS: 06/30/2023 SPEC #: [id number] RECD: 06/30/23 13:14 STATUS: RANDELL NYASIA #: [id number] [place]: 06/30/23 00:[address]: Nichelle Chicas DEPT: SURGICAL PATHOLOGY RECD BY: Bhavik Del Cid ENTERED: 06/30/23 13:14 SP TYPE: BREAST BX OTHR DR: Dr. Mikhail Elaine MD Tissues: Left breast, NOS Procedures: Surgery Specimen Level IV HEADER OPERATION: Left breast biopsy PRE-OP DIAGNOSIS: 2-3 o'clock 6cm from the nipple, abnormal imaging TISSUE SUBMITTED: Left breast mass 2-3 o'clock 6cm from the nipple MICROSCOPIC DIAGNOSIS Left breast mass at 2-3 o'clock, biopsy: Mild fibrocystic change. Focal intraductal hyperplasia without atypia. AM/mr 07/01/2023 MICROSCOPIC DESCRIPTION Slides are reviewed. GROSS DESCRIPTION Received in fixative is one container labeled with the patient's name and designated Left breast biopsy. The specimen consists of multiple elongated fragments of hu-yellow fibroadipose tissue measuring in aggregate 1.0 x 0.5 x 0.1cm. The entire specimen is submitted in one cassette. SAL/ 06/30/23 TC:5 CPT:05449
--- NOTE | 2023-06-30 11:42 | US_ITS ---
STUDY: ULTRASOUND BREAST - LEFT REASON FOR EXAM: Female, 58 years old. Ultrasound-guided biopsy of the left breast nodule. TECHNIQUE: Axial and longitudinal images of the LEFT breast were performed with a high resolution ultrasound transducer. # OF IMAGES: 18 COMPARISON: Comparison is made with prior sonogram of the left breast dated June 22, 2023. FINDINGS: LEFT Breast: Under direct sonographic guidance, the surgeon performed core biopsies of the 5 mm x 9 mm x 4 mm hypoechoic nodule at the 3:00 position of the breast at 8 cm from the nipple. US/US Breast Biopsy 1st Lesion IMPRESSION: Ultrasound-guided core biopsy of the nodular density at the 3:00 position of the breast for 6 hours from the nipple. ASSESSMENT CATEGORY: BIRADS Category 2: Benign. A letter regarding these results will be sent to the patient by the facility within 30 days. Electronically Signed: Chris Middleton MD at 15:41 EDT ,
--- NOTE | 2023-06-30 12:34 | OP.PCM_ITS ---
Report of Operation Date of Procedure: 06/30/23 Pre-Operative Diagnosis: left breast mass Post-Operative Diagnosis: same Surgery/Procedure Performed:: ultrasound-guided left breast biopsy Surgeon: Nichelle Chicas Type of Anesthesia: Local Specimen's removed: left breast mass 2-3 o'clock 6 cm from the nipple Estimated Blood Loss (mL): < 5 cc Description of Procedure: procedure: left ultrasound-guided core biopsy Indications: 58 year-old female with solid/cystic nodule at 2-3 o'clock in the left breast 6 centimeters from the nipple. Risk benefits were discussed the patient and she elected to proceed with ultrasound guided core biopsy with clip placement Description of procedure: Patient was brought into the ultrasound room in the left breast was marked. A timeout was completed verifying correct patient, procedure, site, specially, prior to beginning procedure. The left breast was prepped and draped in usual sterile fashion and using local anesthesia was obtained with 1% lidocaine with epi. The lesion was located with the ultrasound. Small incision was made with 11 blade to introduced the mammotome through the skin. Under ultrasound guidance multiple core samples were obtained using then 13-gauge mammotome and sent in formalin for pathology. The [employer] dual ultra ribbon clip was then deployed into the biopsy cavity under ultrasound guidance and a picture was taken. Upon completion procedure hemostasis was obtained and a Steri-Strip and OpSite were placed. Patient was then taken to the mammography suite for clip verification. The clip was verified. The patient tolerated the procedure well and was discharged from the breast imaging department good condition. Complications none
== END | disposition home or self-care (01) ==
LOC: OPUS 11:32
PROVIDERS: PCP Family Medicine; Visit Provider Surgery
DX: N63.20 Unspecified lump in the left breast, unspecified quadrant (principal); N62 Hypertrophy of breast
CPT/HCPCS: 19083; 88305

== ENCOUNTER 2023-10-05 08:00 | Day surgery (SDC) | payer OTHER, SELFPAY ==
--- NOTE | 2023-10-05 | COLBX_PTH ---
PATIENT: MAREK KIDD LOC: EN U#:[id number] AGE/SX: 58/F ROOM: RE10/05/[address]: Dr. Nichelle Chicas MD : 1965 BED: DIS: 10/05/2023 SPEC #: [id number] RECD: 10/05/23 12:43 STATUS: RANDELL NYASIA #: [id number] [place]: 10/05/23 00:[address]: Nichelle Chicas DEPT: SURGICAL PATHOLOGY RECD BY: Bhavik Del Cid ENTERED: 10/05/23 12:44 SP TYPE: COLON BX OTHR DR: Dr. Mikhail Elaine MD Tissues: Sigmoid colon biopsy Procedures: Surgery Specimen Level IV HEADER OPERATION: Colonoscopy PRE-OP DIAGNOSIS: Positive colorectal cancer screening using Cologuard test TISSUE SUBMITTED: Sigmoid colon polyp, biopsy MICROSCOPIC DIAGNOSIS Sigmoid colon polyp, biopsy: Polypoid fragments of benign colonic mucosa. See comment. ALLI/ 10/06/2023 COMMENT Neither hyperplastic nor adenomatous change is identified. Clinical correlation is suggested. MICROSCOPIC DESCRIPTION Slides are reviewed. GROSS DESCRIPTION Received in fixative is one container labeled with the patient's name and designated Sigmoid colon poly biopsy. The specimen consists of one irregular fragment of light hu soft tissue that measures 0.3 x 0.3 x 0.1 cm. The specimen is totally submitted in one cassette. SAL/ 10/05/2023 TC:5 CPT:46055
--- NOTE | 2023-10-05 08:16 | PRE.ANES_ITS ---
ASA Classification* ASA Classification ASA Classification: 2 Assessment & Plan Anesthesia* Anesthesia Assessment Anesthesia Assessment: Discussed sedation and/or anesthesia options, risks, benefits, and alternatives with patient/parents/legal guardian/POA. Questions invited. The patient/parents/legal guardian/POA seems to understand and agrees to proceed with anesthesia plan. Reviewed the physical assessment, medical history, allergy history and patient home medications list prior to surgery/procedure/anesthetic and documented any changes. Performed airway and anesthesia risk assessments. Anesthesia Type Anesthesia Type: MAC (see written pre anesthesia record for full assessment) Anesthesia Focused Assessment* Airway Assessment Mouth opens: >3 cm Mallampati Score: II Focused Labs Anesthesia Preop lab: CBC WBC 6.9 K/mm3 (4.4-11.0) 06/11/22 01:22 RBC 4.98 M/mm3 (4.2-5.4) 06/11/22 01:22 Hgb 13.7 g/dL (12.0-15.0) 06/11/22 01:22 Hct 42.7 % (37-47) 06/11/22 01:22 Plt Count 257 K/mm3 (150-450) 06/11/22 01:22 CHEMISTRY Potassium 4.1 mmol/L (3.5-5.1) 06/11/22 01:22 Sodium 137 mmol/L (136-145) 06/11/22 01:22 Phosphorus 3.3 mg/dL (2.5-4.9) 04/28/18 17:19 BUN 15 mg/dL (7-18) 06/11/22 01:22 Creatinine 0.84 mg/dL (0.55-1.02) 06/11/22 01:22 Glucose 121 mg/dL (74-106) H 06/11/22 01:22 POC Glucose 107 mg/dL (70-110) 01/26/21 18:35 COAG Pre-Assessment Diagnosis/Proposed Procedure Planned Operative Procedure(s): CSCOPE Anesthesia History 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 When Was Last Pacemaker Check QUESTION #4 FULL TEXT: You/Your Family Experience fever (hyperthermia) with Anesthesia Last Oral Intake Last Oral intake: Last Oral Intake NPO since Meds taken in AM with sips of water? Meds patient instructed to take am of surgery PONV PONV - plant and machinery valuer: PONV - plant and machinery valuer Female Yes 10/01/23 09:02 HX of Motion Sickness Yes 10/01/23 09:02 HX of N/V After Surgery No 10/01/23 09:02 Non-Smoker Yes 10/01/23 09:02 Duration of Surgery greater No 10/01/23 09:02 than 60 minutes Number of Risk Factors 3 10/01/23 09:02 PONV Score Moderate Risk 10/01/23 09:02 Height & Weight Height & Weight: Anesthesia: Height & Weight Height 5 ft 2 in 08/26/23 14:29 Respiratory Assessment Respiratory Assessment - plant and machinery valuer: Respiratory Tract Infection Hx - plant and machinery valuer Hx Respiratory Tract Infection No 10/01/23 09:02 STOP Sleep Apnea STOP Sleep Apnea - plant and machinery valuer: STOP Sleep Apnea - plant and machinery valuer Hx Hypertension No 10/01/23 09:02 Hx Sleep Apnea No 10/01/23 09:02 CPAP BIPAP Do you snore loudly (louder No 10/01/23 09:02 than talking or can be heard Do you often feel tired/ No 10/01/23 09:02 fatigued/ sleepy during daytime? Has anyone observed you stop No 10/01/23 09:02 breathing during sleep? STOP Results Negative 10/01/23 09:02 QUESTION #5 FULL TEXT : Do you snore loudly (louder than talking or can be heard through closed doors)? 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 Specify any problems Hx of Preganancy in last 3 No 10/01/23 09:02 Months Nurse Filling Out Transfusion DSCHRIBER 10/01/23 09:02 & Questions: Date: 10/01/23 10/01/23 09:02 Time: 09:03 10/01/23 09:02 Patient unable to answer at this time (ie. confused, unrespo /Reproduction History /Reproductive History - plant and machinery valuer: /Reproductive Hx- plant and machinery valuer Hx Now No 10/01/23 09:02 Gestational Age (in weeks): EDC: Hx Hx Para Hx Section SAB No 10/01/23 09:02 Active Medications Active Medications: Current Medications Generic Name Dose Route Start Last Admin Trade Name Freq PRN Reason Stop Dose Admin Lactated Ringer's 1,000 mls @ 15 mls/hr 10/05/23 08:15 IV .Q48H NORMA PFSH Medical History Post-menopausal Wears glasses Thyroid disease Fatty liver Injury of head and neck Non-smoker History of pain when walking History of echocardiogram History of stress test Fibrocystic breast Postoperative primary hypothyroidism Papillary thyroid carcinoma Thyroid cancer Cervical adenopathy Multiple thyroid nodules Back pain PVC (premature ventricular contraction) Home Medications ?Medication ?Instructions ?Recorded ?Last Taken ?Type levothyroxine 125 mcg tablet 150 mcg PO DAILY 06/11/22 Unknown History Allergy/AdvReac Type Severity Reaction Status Date / Time No Known Allergies Allergy Verified 10/01/23 09:01 Family History Grandmother Diabetes Mother Diabetes Hypertension CVA (cerebral vascular accident) Thyroid disorder Father Heart disease Grandfather Heart disease Daughter Asthma Surgical History Hx of tonsillectomy H/O total thyroidectomy (~05/04/18) History of colonoscopy History of nasal septoplasty History of cholecystectomy history of back fusion Social History Smoking Status: Never smoker alcohol intake: never substance use type: does not use Review of Systems (Anesthesia) ROS Narrative System reviewed and no additional complaints, except as documented.
[2023-10-05 08:19] VITALS: BP 113/72; PULSE 76; RESP 18; TEMP 36.2; O2SAT 100; BMI 32.0
[2023-10-05] MEDS: Lactated Ringers 1,000 ML 15 ML IV (08:23)
--- NOTE | 2023-10-05 08:33 | HP.PCM_ITS ---
HPI - General General Date of Service: 10/05/23 HPI Narrative MAREK KIDD, is a 58 F who presents for colonoscopy due to positive Cologuard which was last year in May 2022. Patient denies any changes since last office visit. office visit 08/26/23 [facility] HPI: 58-year-old female presents due to positive Cologuard that was done last year May 2022. Patient states she was having issues with hemorrhoids at that time so she did put it off. Patient states she has bowel movements daily and occasional bleeding due to the hemorrhoids. Patient does state occasionally she can feel some left upper quadrant discomfort when she states may be stools moving through as she does have a history of an open cholecystectomy. Otherwise patient denies any abdominal pain/nausea/vomiting/reflux. Patient denies any family history of colon cancer. Patient's last colonoscopy was in 2009 negative per patient [facility] Medical History Post-menopausal Wears glasses Thyroid disease Fatty liver Injury of head and neck Non-smoker History of pain when walking History of echocardiogram History of stress test Fibrocystic breast Postoperative primary hypothyroidism Papillary thyroid carcinoma Thyroid cancer Cervical adenopathy Multiple thyroid nodules Back pain PVC (premature ventricular contraction) Home Medications ?Medication ?Instructions ?Recorded ?Last Taken ?Type levothyroxine 125 mcg tablet 150 mcg PO DAILY 06/11/22 10/04/23 History Allergy/AdvReac Type Severity Reaction Status Date / Time No Known Allergies Allergy Verified 10/05/23 08:18 Family History Grandmother Diabetes Mother Diabetes Hypertension CVA (cerebral vascular accident) Thyroid disorder Father Heart disease Grandfather Heart disease Daughter Asthma Surgical History Hx of tonsillectomy H/O total thyroidectomy (~05/04/18) History of colonoscopy History of nasal septoplasty History of cholecystectomy history of back fusion Social History Smoking Status: Never smoker alcohol intake: never substance use type: does not use Past Medical/Surgical History Planned Operation Planned Operative Procedure(s): CSCOPE S.O.S: No Previous Hospitalizations/Surgeries HX Hospitalizations: No HX of Surgeries: LAP MANISHA BACK FUSION NASAL SEPTOPLASTY COLONOSCOPY Any Problems With Anesthesia: No You/Your Family Experience Fever (Hyperthermia) With Anes: No Cholinesterase deficiency: No Cardiovascular Hx Chest Pain within Last 2 months: No Hx of Irregular Heartbeat and/or Afib: Yes (PVC'S) Hx Heart Attack: No Hx Congestive Heart Failure: No Hx Rheumatic Fever: No Hx Hypertension: No Hx Internal Defibrillator: No Hx Pacemaker: No Hx Cardiac Catheterization: No Hx Cardiac Surgery/Stents/Etc.: No Hx Stress Test: Yes (NORMAL PER PT, 2010) Hx Pain in Legs when Walking/Leg Cramps: Yes Respiratory Chronic Cough: No HX of Shortness of Breath: No Hoarseness: No Hx Chronic Obstructive Pulmonary Disease (COPD): No Hx Asthma: No Hx Emphysema: No Hx Sleep Apnea: No Hx Respiratory Tract Infection/Cold (presently): No Do You Snore Loudly (louder than talking or can be heard): No Do You Often Feel Tired/ Fatigued/ Sleepy Dring Daytime?: No Has Anyone Observed You Stop Breathing During Sleep?: No Result (for STOP score): Negative Hx Smoking: No Smoking Status: Never smoker Gastrointestinal Hx Gastrointestinal Disorders: Yes (HX OF POLYP IN COLON) Hx Gastrointestinal Bleed: No Hx Ulcer: No Hx Hiatal Hernia: No Difficulty Chewing/Swallowing: No Special diet followed at home: Yes (WHOLE 30 DIET) Hx Unplanned Weight Loss of 20#: No HX Unplanned Weight Gain of 20#: No Neurological Hx Seizures: No HX Syncope/Blackout Spells/Unconsciousness: Yes (VERTIGO) Hx Transient Ischemic Attacks (TIA): No Hx Multiple Sclerosis: No Hx Parkinson's Disease: No Hx Head/Neck Injury: No Hx Headaches: Yes (HX OF MIGRAINES) Hx Back Injury/Pain: Yes (BACK FUSION) Recent Onset of Speech Difficulty: No Restless Legs: No Does patient have nerve stimulator: No Blood Disorder Hx Leukemia: No Bleeding Tendencies: No Hx Deep Vein Thrombosis: No Hx High Cholesterol: No Blood Transmitted Disease: No Hx Hepatitis: No Hx Cirrhosis: No Hx Anemia: No ( A CHILD) Hx Blood Disorders: No Reproduction : No Genitourinary Hx Renal Disease: No Musculoskeletal Hx Arthritis: No Hx Rheumatoid Arthritis: No Hx Gout: No Recent Onset of an Orthopedic Problem: No Endocrine Hx Diabetes: No Thyroid Disease: Yes (NODULE FOUND) Hx Steroid Therapy: No Psycho/Social Hx Substance Use: No Hx Alcohol Use: No Hx Anxiety: No Hx Depression: No Mental Illness: No Hx Dementia: No Miscellaneous Hx Cancer: No Recent Exposure to Contagious Disease: No Hx of C-Diff: No Any Loose Teeth: No Allergies No Known Allergies Allergy (Verified 10/05/23 08:18) Discharge Is Pt Admitted From a Shelter, or a [place] [facility]: No After D/C, Where Do you Plan to Go: Return Home Vital Signs Vital Signs Vital Signs: 10/05/23 08:17 10/05/23 08:19 Temperature 97.2 F L Temperature Source Temporal Pulse Rate 76 Respiratory Rate 18 Respiratory Pattern Normal Blood Pressure 113/72 Blood Pressure Mean 85 Blood Pressure Source Monitor Blood Pressure Position Semi-Fowlers Blood Pressure Location Left Arm Pulse Ox 100 Oxygen Delivery Method Room Air Weight Weight: 180 lb 9.6 oz Body Mass Index (BMI) 32.0 Physical Exam Const alert, oriented x3 and no apparent distress HEENT normocephalic and head/scalp atraumatic Resp normal respiratory effort Cardio regular rate GI soft to palpation and non-tender; Negative for non-distended Palpation: Negative for guarding Extremity no clubbing, cyanosis or edema Skin no rashes or lesions noted Neuro CN's II-XII intact bilaterally Psych mental status grossly normal Assessment & Plan Assessment/Plan (1) Positive colorectal cancer screening using Cologuard test: Surgery Risks - Colonoscopy I discussed with the patient the risks of the procedure: Yes Risks Include but are not Limited To: Risks include but are not limited to: Bleeding, perforation requiring further surgery, inability to complete colonoscopy requiring barium enema.
--- NOTE | 2023-10-05 09:33 | OP.COLON_ITS ---
Patient Name: Lydia Fuller Procedure Date: 10/05/2023 9:03 AM Date of : 1965 Age: 58 Procedure: Colonoscopy Indications: Positive Cologuard test Providers: Nichelle Chicas MD Medicines: Monitored Anesthesia Care Patient Profile: This is a 58 year old female. Last Colonoscopy: more than 10 years ago. Complications: No immediate complications. Procedure: Pre-Anesthesia Assessment: - Prior to the procedure, a History and Physical was performed, and patient medications and allergies were reviewed. The patient's tolerance of previous anesthesia was also reviewed. The risks and benefits of the procedure and the sedation options and risks were discussed with the patient. All questions were answered, and informed consent was obtained. Prior Anticoagulants: The patient has taken no anticoagulant or antiplatelet agents. ASA Grade Assessment: Per anesthesia. After reviewing the risks and benefits, the patient was deemed in satisfactory condition to undergo the procedure. After I obtained informed consent, the scope was passed under direct vision. Throughout the procedure, the patient's blood pressure, pulse, and oxygen saturations were monitored continuously. The Colonoscope was introduced through the anus and advanced to the terminal ileum. The colonoscopy was performed without difficulty. The patient tolerated the procedure well. The quality of the bowel preparation was good. Scope In: 9:09:03 AM Scope Withdrawal Time 0 hours 13 minutes 1 second Scope Out: 9:29:25 AM Total Procedure Duration Time 0 hours 20 minutes 22 seconds Findings: Hemorrhoids were found on perianal exam. Non-bleeding external and internal hemorrhoids were found. The hemorrhoids were small and Grade I (internal hemorrhoids that do not prolapse). The terminal ileum appeared normal. A less than 5 mm polyp was found in the sigmoid colon. The polyp was sessile. The polyp was removed with a cold biopsy forceps. Resection and retrieval were complete. The exam was otherwise without abnormality. Impression: - Hemorrhoids found on perianal exam. - Non-bleeding external and internal hemorrhoids. - The examined portion of the ileum was normal. - One less than 5 mm polyp in the sigmoid colon, removed with a cold biopsy forceps. Resected and retrieved. - The examination was otherwise normal. Recommendation: - Discharge patient to home. - Resume previous diet. - Continue present medications. - Await pathology results. - Repeat colonoscopy in 5 years for surveillance based on pathology results. Procedure Code(s): --- Professional --- 78273, PT, Colonoscopy, flexible; with biopsy, single or multiple Diagnosis Code(s): --- Professional --- K64.0, First degree hemorrhoids D12.5, Benign neoplasm of sigmoid colon R19.5, Other fecal abnormalities CPT copyright 2021 [employer]. All rights reserved. The codes documented in this report are preliminary and upon coder operator review may be revised to meet current compliance requirements. MD Nichelle Celis MD 10/05/2023 9:33:28 AM This report has been signed electronically. Number of Addenda: 0 Note Initiated On: 10/05/2023 9:03 AM
--- NOTE | 2023-10-05 09:34 | OP.CCLET_ITS ---
10/05/2023 Mikhail Elaine Re : Colonoscopy procedure for Lydia Rey Chele This procedure was performed on Thursday, October 05, 2023. My impressions and recommendations are as follows: Impressions : - Hemorrhoids found on perianal exam. - Non-bleeding external and internal hemorrhoids. - The examined portion of the ileum was normal. - One less than 5 mm polyp in the sigmoid colon, removed with a cold biopsy forceps. Resected and retrieved. - The examination was otherwise normal. Recommendations : - Discharge patient to home. - Resume previous diet. - Continue present medications. - Await pathology results. - Repeat colonoscopy in 5 years for surveillance based on pathology results. My findings are described in the full procedure note, which is enclosed. If I can be of further assistance, please feel free to contact me at Doctor phone number(s): , Work: . Sincerely, MD Nichelle Celis MD 10/05/2023 9:33:28 AM This report has been signed electronically.
[2023-10-05 09:35] VITALS: BP 113/72; BP 113/73; PULSE 63; RESP 16; TEMP 36.4; O2SAT 97
--- NOTE | 2023-10-05 09:36 | PCM.POST.ANE ---
Anesthesia: Postop Eval I Current Vital Signs Temperature: 97.5 F Pulse Rate: 64 Blood Pressure: 113/73 Respiratory Rate: 16 Pulse Ox: 98 Oxygen Delivery Method: Room Air Assessment Airway patent: Yes Spontaneous unlabored respirations: Yes Mental status: Awake and Calm nausea: No Vomiting: No Anesthesia Complication: No Fluid Hydration Crystalloid volume administer (ml): 600 Total IV fluid infused: 600 Progress Note Anesthesia document: Postop Eval 1 completed: Yes
[2023-10-05 09:37] VITALS: BP 113/73; PULSE 64; RESP 16; TEMP 36.4; O2SAT 98
[2023-10-05 09:40] VITALS: BP 113/72; BP 113/77; PULSE 62; RESP 16; O2SAT 97
--- NOTE | 2023-10-05 09:42 | PCM.POSTANE2 ---
Anesthesia Postop Eval I Sum Postop Eval Completion status Anesthesia document: Postop Eval 1 completed: Yes Anesthesia Postop Eval I Summary Anesthesia Postop Eval I Summary: Anesthesia Postop Eval I: Assessment Summary Airway patent Yes 10/05/23 09:37 [email or web address] Spontaneous unlabored Yes 10/05/23 09:37 [email or web address] respirations Mental status Awake,Calm 10/05/23 09:37 [email or web address] nausea No 10/05/23 09:37 [email or web address] Vomiting No 10/05/23 09:37 [email or web address] Anesthesia Postop Eval I: Fluid Summary Crystalloid volume administer 600 10/05/23 09:37 [email or web address] (ml) Colloids volume administered ( ml) Blood Product volume administered (ml) Total IV fluid infused 600 10/05/23 09:37 [email or web address] Anesthesia Postop Eval I: Summary Notes Anesthesia Complication No 10/05/23 09:37 [email or web address] Anesthesia Complication Comment: Post-operative progress note Anesthesia: Postop Eval II Evaluation Mental status: Awake Pain Level: 0 nausea: No Vomiting: No
[2023-10-05 09:45] VITALS: BP 109/75; BP 113/72; PULSE 64; RESP 16; TEMP 36.1; O2SAT 98
[2023-10-05 09:57] VITALS: BP 113/72
== END 2023-10-05 10:18 | disposition home or self-care (01) ==
LOC: EN 08:01 → AC 08:06
PROVIDERS: PCP Family Medicine; Referring Provider Surgery; Visit Provider Surgery
PROC: 0DJD8ZZ Inspection of Lower Intestinal Tract, Via Natural or Artificial Opening Endoscopic (ICD-10-PCS; CPT 45378; principal; 2023-10-05 09:25)
DX: K63.5 Polyp of colon (principal); K64.4 Residual hemorrhoidal skin tags; R19.5 Other fecal abnormalities; K64.0 First degree hemorrhoids; I10 Essential (primary) hypertension; E04.2 Nontoxic multinodular goiter; E78.5 Hyperlipidemia, unspecified; Z79.890 Hormone replacement therapy; E89.0 Postprocedural hypothyroidism; Z90.49 Acquired absence of other specified parts of digestive tract
CPT/HCPCS: 45380; 88305; J7120; J2405